=== PATIENT | female | born 1930 | race Caucasian/White ===

== ENCOUNTER 2018-12-21 22:52 | Emergency (ER) | payer SELFPAY ==
[2018-12-22] MEDS: IBUPROFEN 600 MG TAB PO (01:24)
[2018-12-22] MEDS: CEFAZOLIN 1 GM INJ IM (01:24)
== END 2018-12-22 02:58 | disposition home or self-care (01) ==
LOC: E/R 22:52
DX: L60.0 Ingrowing nail (principal); M79.671 Pain in right foot
CPT/HCPCS: 96372; 99284-25